=== PATIENT | female | born 1975 | race Caucasian/White ===

== ENCOUNTER 2016-07-04 20:06 | Emergency (ER) | payer MEDICARE, OTHER ==
[2016-07-04] MEDS ORDERED: OXYCODONE HCL 5 MG TABLET PO ONE (20:37)
--- NOTE | 2016-07-04 20:40 | EDPRACDOC ---
- General Chief Complaint: Fall Stated Complaint: FALL Time Seen by Provider: 07/04/16 20:33 - History of Present Illness HPI: PATIENT SLIPPED ON ICE AND FELL BACKWARD STRIKING HEAD. UNKNOWN IF LOC. NAUSEA. NO VOMITING. HEADACHE. COMPLAINS OF LEFT SHOULDER AND RIGHT ELBOW PAIN WELL LOW BACK PAIN Pain Severity: Reports: Moderate Injuries/Pain Location: Reports: head, upper extremity, back Reason for Fall: Reports: slipped Loss of Consciousness: unsure Associated Symptoms (Fall): Reports: nausea/vomiting Allergies/Adverse Reactions: Allergies mushroom Allergy (Verified 07/04/16 20:54) Hives* Home Medications: Ambulatory Orders Adalimumab [Humira] 40 mg SQ .WEEKLY ON WE 07/04/16 Amitriptyline HCl 25 mg PO DAILY 07/04/16 Gabapentin 600 mg PO TID 07/04/16 Hydroxychloroquine Sulfate [Plaquenil] 200 mg PO DAILY 07/04/16 Methotrexate Sodium/Pf [Methotrexate 25 mg/ml Vial] 0.6 ml IJ .WEEKLY ON 04/10 Oxycodone HCl/Acetaminophen [Percocet 10-325 mg Tablet] 1 tab PO Q12H PRN Oxycodone HCl/Acetaminophen [Percocet 5-325 mg Tablet] 1 each PO Q4 #20 tablet 07/04/16 Prednisone [Deltasone, Orasone] 5 mg PO DAILY PRN 07/04/16 Trazodone HCl 300 mg PO QHS 07/04/16 ED Past Medical History - History Reviewed Yes Nurses notes reviewed and agree except as marked Travel Outside of [place] in the Last 3 Months?: No - Patient Medical History Surgical History: Reports: No Significant History - Social Medical History ETOH: None Substance Abuse: None Lives With: Family Lives In: Home EDM Review of Systems - Review of Systems ROS Negative Except as Marked: Yes All systems reviewed and were negative except as marked Constitutional: No Symptoms Reported. negative: Fever, Chills, Weakness, Fatigue, Loss of Appetite Eyes: No Symptoms Reported. negative: Redness, Blurred Vision, Double Vision, Discharge, Pain, Light Sensitive, Photophobia Ears: No Symptoms Reported. negative: Pain, Hearing Loss, Drainage, Ear Pulling Throat: No Symptoms Reported. negative: Pain, Swelling Nose: No Symptoms Reported. negative: Congestion, Bleeding, Discharge, Injection, Swelling, Deformity, Ecchymosis, Tender, Abrasion, Laceration Mouth: No Symptoms Reported. negative: Pain, Drooling Respiratory: No Symptoms Reported. negative: Cough, Brassy Cough, Barky Cough, Shortness of Breath, Wheezing, Hemoptysis Cardiovascular: No Symptoms Reported. negative: Chest Pain, Palpitations, Syncope, Edema, Orthopnea, PND, Skin Mottling, Cyanosis Gastrointestinal: No Symptoms Reported. negative: Pain, Constipation, Nausea, Vomiting, Diarrhea, Melena, Formula Intolerance Genitourinary: No Symptoms Reported. negative: Dysuria, Hematuria, Frequency, Discharge, Bleeding, Testicular Pain, Neurological: Headache. negative: Dizziness, Gait Difficulty, Numbness, Seizure , Speech Difficulty, Weakness Musculoskeletal: Back, Elbow, Shoulder. negative: Arm, Ankle, Chestwall, Forearm, Femur, Foot, Hand, Hip, Knee, Leg, Neck, Pelvis, Ribs, Wrist Integumentary: No Symptoms Reported. negative: Itching, Rash, Bruising, Wound Allergic/Immunologic: No Symptoms Reported. negative: Hives, Itching Hematologic: No Symptoms Reported. negative: Lymphadenopathy, Easy Bruising, Easy Bleeding Endocrine: No Symptoms Reported. negative: Weight Gain, Weight Loss Psychiatric: No Symptoms Reported. negative: Anxiety, Depression, Hallucinations, Insomnia, Suicidal - Physical Exam Constitutional: Alert (Awake), Distress (MILD) Oriented to: Time, Person, Place Last recorded Vital Signs: Oxygen Pulse Oxygen Saturation O2 Device Oxygen Flow Rate Fraction of Inspired Oxygen ( FIO2) - HEENT Head: Normal ( normocephalic) Eye Exam: Normal (PERRL, EOMI, Sclera white) Oropharynx: Normal (Pharynx:Moist without exudate,Gums-no swelling) Tympanic Membrane: Normal ENT EAC: Normal TMJ: Normal Nose: No Symptoms Reported (septum midline) Neck: In Collar - Respiratory/Cardiovascular Respiratory: Normal - CTA (BBS clear to auscultation without adventitious sounds ) Cardiovascular: Normal (RRR without murmur, gallop or rub) - GI Auscultation: Normal (NABS) Palpation: Normal (Soft,No rebound or guarding, non distended) Tenderness: Non tender Lynch's Sign: Negative - Bladder: Normal - Musculoskeletal Back: Other (MILD PARASPINAL TENDERNESS) Extremities: Other (ABRASION AND PAIN RIGHT ELBOW. PAIN WITH ROM LEFT SHOULDER) - Integumentary Skin: Warm, Dry Lymphatics: Normal (no adenopathy) - Neurologic Memory Impaired: Normal Motor Function: Normal (Normal tone, Pulses 2+ No cyanosis or edema, FROM) Cranial Nerve: Normal (CN II-X11 intact sensation, strength 5/5) Cerebellar: Normal Mood Description: Normal Perception: Normal Decision Time to Discharge: 22:07 - Departure Yes I personally saw and evaluated the patient. Disposition: Home Condition: Good Final Diagnosis: Head contusion Qualifiers: Encounter type: initial encounter Contusion of head detail: scalp Qualified Code(s): S00.03XA - Contusion of scalp, initial encounter Contusion of left shoulder Qualifiers: Encounter type: initial encounter Qualified Code(s): S40.012A - Contusion of left shoulder, initial encounter Contusion of right elbow Qualifiers: Encounter type: initial encounter Qualified Code(s): S50.01XA - Contusion of right elbow, initial encounter Low back strain Qualifiers: Encounter type: initial encounter Qualified Code(s): S39.012A - Strain of muscle, fascia and tendon of lower back, initial encounter Instructions: RICE: Routine Care for Injuries, Core Strengthening Exercises ( GEN), Back Pain, Thoracic (Lumbar) Strain Education/Counseling Given To: Patient Education/Counseling Given Regarding: Diagnosis, Treatment, Prognosis, Follow Up Referrals: None,No Provider [Primary Care Provider] - One Week Manan Wilder MD [Staff Physician] - One Week Prescriptions: Oxycodone HCl/Acetaminophen [Percocet 5-325 mg Tablet] 1 each PO Q4 #20 tablet
[2016-07-04 21:03] VITALS: BMI 43.5
--- NOTE | 2016-07-04 21:20 | DIRPT ---
CLINICAL DATA: Fall on ice in the driveway. Struck back of head, now with posterior headache, nausea and neck pain. EXAM: CT HEAD WITHOUT CONTRAST CT CERVICAL SPINE WITHOUT CONTRAST TECHNIQUE: Multidetector CT imaging of the head and cervical spine was performed following the standard protocol without intravenous contrast. Multiplanar CT image reconstructions of the cervical spine were also generated. COMPARISON: None. FINDINGS: CT HEAD FINDINGS No intracranial hemorrhage, mass effect, or midline shift. No hydrocephalus. The basilar cisterns are patent. No evidence of territorial infarct. No intracranial fluid collection. Calvarium is intact. Included paranasal sinuses and mastoid air cells are well aerated. CT CERVICAL SPINE FINDINGS Cervical spine alignment is maintained. Vertebral body heights and intervertebral disc spaces are preserved. There is no fracture. The dens is intact. There are no jumped or perched facets. No prevertebral soft tissue edema. IMPRESSION: 1. No acute intracranial abnormality. 2. No fracture or subluxation of the cervical spine. Electronically Signed By: Shaylee Savage M.D. On: 07/04/2016 21:18
--- NOTE | 2016-07-04 21:56 | DIRPT ---
CLINICAL DATA: Slip and fall on ice, now with left shoulder pain. EXAM: LEFT SHOULDER - 2+ VIEW COMPARISON: None. FINDINGS: No fracture or dislocation. Mild degenerative change at the glenohumeral joint. Acromioclavicular joint is congruent. No focal soft tissue abnormality. IMPRESSION: No fracture or dislocation of the left shoulder. Electronically Signed By: Shaylee Savage M.D. On: 07/04/2016 21:54
--- NOTE | 2016-07-04 21:57 | DIRPT ---
CLINICAL DATA: 40-year-old female with fall EXAM: LUMBAR SPINE - COMPLETE 4+ VIEW COMPARISON: CT dated 01/27/2016 FINDINGS: No definite acute fracture or subluxation. Minimal loss of vertebral body height at T12, likely chronic. The visualized spinous and transverse processes are intact. The soft tissues are grossly unremarkable new IMPRESSION: No acute/traumatic lumbar spine pathology. Electronically Signed By: Donavon Villaseñor M.D. On: 07/04/2016 21:55
--- NOTE | 2016-07-04 21:58 | DIRPT ---
CLINICAL DATA: Slip and fall on ice, now with right elbow pain. EXAM: RIGHT ELBOW - COMPLETE 3+ VIEW COMPARISON: None. FINDINGS: No fracture or dislocation. The alignment and joint spaces are maintained. There is no elbow joint effusion. Small well corticated osseous density about the lateral humeral epicondyle, may reflect an accessory ossicle or sequela of remote prior injury. Mild posterior soft tissue edema. IMPRESSION: No fracture or subluxation of the right elbow. Electronically Signed By: Shaylee Savage M.D. On: 07/04/2016 21:55
[2016-07-04 22:34] VITALS: BP 121/18; PULSE 88; TEMP 98.1
== END 2016-07-04 22:32 | disposition home or self-care (01) ==
LOC: ED 20:06
DX: S50.01XA Contusion of right elbow, initial encounter (principal); S39.012A Strain of muscle, fascia and tendon of lower back, initial encounter; S40.012A Contusion of left shoulder, initial encounter; S00.03XA Contusion of scalp, initial encounter; W01.0XXA Fall on same level from slipping, tripping and stumbling without subsequent striking against object, initial encounter
CPT/HCPCS: 70450; 72110; 72125; 73030; 73080; 99284; A9270; J3490